=== PATIENT | male | born 1975 | race African-American/Black ===

== ENCOUNTER 2018-01-08 06:04 | Day surgery (SDC) | payer OTHER ==
[2018-01-05 15:16] LABS: Basophils # (auto) 0 uL; Eosinophils # (auto) 0 uL; Eosinophils % (auto) 0.5 % (0.0-7.0); Lymphocytes # (auto) 2.3 uL; Monocytes # (auto) 0.9 uL
[2018-01-05 15:18] LABS: Basophils % (auto) 0.6 % (0.0-2.0); Hematocrit 41.4 % (41.0-53.0); Lymphocytes % (auto) 28.5 % (10.0-50.0); Mean Corpuscular Hgb Conc. 31.4 g/dL (32.0-36.0); Mean Corpuscular Volume 76.4 fL (80.0-100.0); Monocytes % (auto) 11.4 % (0.0-12.0); Neutrophils # (auto) 4.8 uL; Nucleated Red Blood Cells % 0.1 %; Platelet Count (auto) 317 10^3/uL (140-450); Red Blood Cells 5.42 10^6/uL (4.5-5.90); Red Cell Distribution Width 17.2 % (11.8-14.3); White Blood Cell 8.1 10^3/uL (4.4-10.8)
[2018-01-05 15:32] LABS: INR 0.95 (0.9-1.15); Partial Thromboplastin Time 28.1 sec (22.64-33.71); Prothrombin Time 10.4 sec (9.37-12.3)
[2018-01-05 15:44] LABS: BUN/Creatinine Ratio 8.9; Bilirubin, Total 0.3 mg/dL (0.2-1.0); Calcium 9.7 mg/dL (8.5-10.1); Potassium 4.3 mmol/L (3.5-5.1); Total Protein 8.7 g/dL (6.4-8.2)
[2018-01-05 15:51] LABS: Urine Bacteria NONE SEEN /hpf (None Seen); Urine Blood Negative /uL (Negative); Urine Specific Gravity 1.019 (1.001-1.035); Urine WBC 1 /hpf (0 - 3)
[~2018-01-08] VITALS: Ht 188 cm; Wt 118.8 kg
[~2018-01-08 06:04] MED LIST: AMLO5TAB2 PO; ASPI81TA27 PO; ATOR40TA52 PO; CHOL1000 PO; DULO1CAP2 PO; METF-370 PO; PRA1C PO; RAMI2.5C33 PO; TRAZ50TA2 PO
[2018-01-08] MEDS ORDERED: ceFAZolin 1GM/50ML 50 ML IV ONE (06:28)
[2018-01-08] MEDS ORDERED: DEXAMETHASONE SOD PHOS 10MG/1ML VIAL INJ ONE (07:29)
[2018-01-08] MEDS ORDERED: fentaNYL CITRATE 100 MCG/2 ML VL ONE (07:29)
[2018-01-08] MEDS ORDERED: PROPOFOL 10 MG/ML 20 ML IV ONE (07:29)
[2018-01-08] MEDS ORDERED: MIDAZOLAM HCL 1MG/1ML-2 ML VIAL ONE (07:29)
[2018-01-08] MEDS ORDERED: MEPERIDINE HCL (50 MG/ML) 1 ML VIAL ONE (07:30)
[2018-01-08] MEDS ORDERED: ePHEDrine SULFATE 50 MG/ML AMP IV PRN (07:45)
[2018-01-08] MEDS ORDERED: KETOROLAC TROMETH 30 MG/ML 1ML VIAL IV ONE (07:45)
[2018-01-08] MEDS ORDERED: ONDANSETRON HCL 4 MG/2 ML VIAL IV ONE (07:45)
[2018-01-08] MEDS ORDERED: ACCU-CHEK COMFORT CURVE STRIP VI ONE (07:45)
[2018-01-08] MEDS ORDERED: MORPHINE SULFATE 4 MG/ML SYR/VIAL IV PRN (07:45)
[2018-01-08] MEDS ORDERED: MIDAZOLAM HCL 1MG/1ML-2 ML VIAL IV PRN (07:45)
[2018-01-08] MEDS ORDERED: LABETALOL HCL 5 MG/ML 4ML SYRINGE IV PRN (07:45)
[2018-01-08] MEDS ORDERED: HYDROmorphone HCL 2 MG/ML VL IV PRN (07:45)
[2018-01-08] MEDS ORDERED: MORPHINE SULFATE 4 MG/ML SYR/VIAL IV ONE (08:00)
[2018-01-08] MEDS ORDERED: TRIAMCINOLONE 40MG/ML 1ML VIAL ONE (08:06)
[2018-01-08] MEDS ORDERED: METOCLOPRAMIDE HCL 5MG/ml INJ 2ml VIAL ONE (08:09)
[2018-01-08 09:30] VITALS: BP 110/78
[2018-01-08] MEDS ORDERED: LIDOCAINE 1% HCL (LOCAL ANESTH.) INJ 20ML MDV ONE (12:57)
[2018-01-08] MEDS ORDERED: BUPIVACAINE HCL 50 ML ONE (12:57)
== END 2018-01-08 09:30 | disposition home or self-care (01) ==
LOC: SUR 06:04
PROVIDERS: ATTEND Orthopaedic Surgery
DX: S73.101A Unspecified sprain of right hip, initial encounter (principal); T84.020A Dislocation of internal right hip prosthesis, initial encounter; X58.XXXA Exposure to other specified factors, initial encounter; Y93.9 Activity, unspecified; Y92.9 Unspecified place or not applicable; Y99.9 Unspecified external cause status; E66.01 Morbid (severe) obesity due to excess calories; Z68.33 Body mass index [BMI] 33.0-33.9, adult; E11.22 Type 2 diabetes mellitus with diabetic chronic kidney disease; I12.9 Hypertensive chronic kidney disease with stage 1 through stage 4 chronic kidney disease, or unspecified chronic kidney disease; N18.2 Chronic kidney disease, stage 2 (mild); G47.33 Obstructive sleep apnea (adult) (pediatric); F10.99 Alcohol use, unspecified with unspecified alcohol-induced disorder
CPT/HCPCS: 20610; 27275; 36415; 73501; 76000; 80053; 81001; 82962; 83036; 85025; 85610; 85730; J0690; J1100; J2001; J2175; J2250; J2704; J2765; J3010; J3301; J3490